=== PATIENT | female | born 1990 | race Caucasian/White ===

== ENCOUNTER 2016-04-13 10:52 | Outpatient (CLI) | payer OTHER, MEDICAID ==
[2016-04-13 11:33] LABS: #Basophils 0.1 thou/uL (0.0-0.2); #Eosinphils 0.1 thou/uL (0.0-0.7); #Lymphocytes 1.6 thou/uL (1.20-3.40); #Monocytes 0.5 thou/uL (0.11-0.59); #Neutrophils 3.1 thou/uL (1.40-6.50); %Basophils 1.8 % (0.0-1.0); %Eosinophils 1.4 % (0.0-10.0); %Lymphocytes 30.3 % (21.0-51.0); %Monocytes 8.9 % (0.0-10.0); %Neutrophils 57.6 % (42.0-75.0); Hemoglobin 13.6 g/dL (12.0-16.0); Mean Corpuscular HGB CONC 34.5 g/dL (32.0-36.0); Mean Corpuscular Hemoglobin 31.8 pg (27.0-31.0); Mean Corpuscular Volume 92.2 fl (81.0-99.0); Platelet Count 189 thou/uL (130-400); RBC Distribution Width 10.5 % (11.5-14.5); Red Blood Cell (RBC) Count 4.27 mill/uL (4.20-5.40); White Blood Cell (WBC) Count 5.4 thou/uL (4.8-10.8)
[2016-04-13 11:38] LABS: Hemoglobin A1c 4.9 % (4.0-6.0)
[2016-04-13 12:03] LABS: Anion Gap 14 mmol/L (10-20); BUN (Urea Nitrogen) 13 mg/dL (7.0-18.7); Calc. Creatinine Clearance 0 mL/min (70-130); Calcium 9.4 mg/dL (7.8-10.44); Carbon Dioxide 24 mmol/L (22-29); Chloride 106 mmol/L (98-107); Estimated GFR-MDRD Greater than 90; Glucose 84 mg/dL (70-105); Sodium 140 mmol/L (136-145)
== END 2016-04-13 10:53 ==
LOC: MADLABBHPM 10:52
PROVIDERS: ATTEND Family Medicine
DX: N32.81 Overactive bladder (principal); F41.9 Anxiety disorder, unspecified
CPT/HCPCS: 36415; 80048; 83036; 84443; 85025

== ENCOUNTER 2017-05-10 11:58 | Outpatient (CLI) | payer OTHER ==
--- NOTE | 2017-05-10 12:36 | RAD ---
LEFT SHOULDER THREE VIEWS: History: Chronic pain. FINDINGS: AC and glenohumeral joints are unremarkable. There is no lytic or blastic bony change. IMPRESSION: Unremarkable left shoulder. POS: C
--- NOTE | 2017-05-10 12:45 | RAD ---
CERVICAL SPINE SERIES THREE VIEWS: History: Chronic neck pain. FINDINGS: Vertebral bodies and disc spaces are well preserved. Facets are normal alignment. No soft tissue swel ling. IMPRESSION: Unremarkable cervical spine. POS: C
== END 2017-05-10 11:59 | disposition home or self-care (01) ==
LOC: MADRAD 11:58
PROVIDERS: ATTEND Family Medicine
DX: M25.512 Pain in left shoulder (principal)
CPT/HCPCS: 72040